=== PATIENT | female | born 1955 | race Caucasian/White ===

== ENCOUNTER 2017-06-24 16:03 | Observation (INO) | payer OTHER ==
--- NOTE | 2017-06-24 16:20 | ED ---
General Adult HPI - General Chief complaint: Chest Pain Stated complaint: Chest Pain Time Seen by Provider: 06/24/17 16:17 Source: patient, RN notes reviewed, old records reviewed Mode of arrival: wheelchair Limitations: no limitations - History of Present Illness Initial comments: This is a 62-year-old female to the ER for reevaluation. Patient coming in fevers or multiple complaints, right arm pain and tingling, dizziness, fast heart rate, shortness of breath and chest pain. Decreased appetite decreased ability to swallow secondary to possible esophageal mass which she knows about. No fevers no cough no congestion recent change in medical history no change in medications - Related Data Home Medications Medication Instructions Recorded Confirmed ALPRAZolam [Xanax] 0.5 mg PO Q8H PRN 06/24/17 06/24/17 Aspirin EC [Ecotrin Low Dose] 81 mg PO QAM 06/24/17 06/24/17 Cholecalciferol [Vitamin D3] 1,000 unit PO QAM 06/24/17 06/24/17 Cyclobenzaprine [Flexeril] 10 mg PO HS PRN 06/24/17 06/24/17 HYDROcodone/APAP 10-325MG [[place] 1 tab PO Q12H PRN 06/24/17 06/24/17 10-325] guaiFENesin [Mucinex] 600 mg PO BID PRN 06/24/17 06/24/17 metFORMIN HCL [Glucophage] 500 mg PO BID-W/MEALS 06/24/17 06/24/17 Allergies Allergy/AdvReac Type Severity Reaction Status Date / Time naproxen Allergy Anaphylaxis Verified 06/24/17 16:14 Review of Systems ROS Statement: Those systems with pertinent positive or pertinent negative responses have been documented in the HPI. ROS Other: All systems not noted in ROS Statement are negative. 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 Absent: scleral icterus, conjunctival injection, periorbital swelling ENT exam: Present: normal exam, mucous membranes moist Neck exam: Present: normal inspection. Absent: tenderness, meningismus, lymphadenopathy Respiratory exam: Present: normal lung sounds bilaterally. Absent: respiratory distress, wheezes, rales, rhonchi, stridor Cardiovascular Exam: Present: normal rhythm, tachycardia, normal heart sounds. Absent: systolic murmur, diastolic murmur, rubs, gallop, clicks GI/Abdominal exam: Present: soft, normal bowel sounds. Absent: distended, tenderness, guarding, rebound, rigid Extremities exam: Present: normal inspection, full ROM, normal capillary refill. Absent: tenderness, pedal edema, joint swelling, calf tenderness Back exam: Present: normal inspection Neurological exam: Present: alert, oriented X3, CN II-XII intact Psychiatric exam: Present: normal affect, normal mood Skin exam: Present: warm, dry, intact, normal color. Absent: rash Course Vital Signs 06/24/17 06/24/17 16:08 18:00 Temperature 98.6 F Pulse Rate 127 H 106 H Respiratory 20 20 Rate Blood Pressure 195/79 151/76 O2 Sat by Pulse 99 100 Oximetry EKG Findings - EKG Comments: EKG Findings:: EKG shows sinus tachycardia rate 126, [place] 140, QRS 74, QTC 457 Medical Decision Making - Medical Decision Making 62 the ER for evaluation. Patient is here today with chest pain inability. Patient be admitted for cardiac observation - Lab Data Result diagrams: 06/24/17 16:56 06/24/17 16:56 Lab Results 06/24/17 06/24/17 06/24/17 Range/Units 16:56 16:56 16:56 WBC 12.0 H (3.8-10.6) k/uL RBC 4.34 (3.80-5.40) m/uL Hgb 13.6 (11.4-16.0) gm/dL Hct 41.4 (34.0-46.0) % MCV 95.2 (80.0-100.0) fL MCH 31.2 (25.0-35.0) pg MCHC 32.8 (31.0-37.0) g/dL RDW 13.9 (11.5-15.5) % Plt Count 322 (150-450) k/uL Neutrophils % 67 % Lymphocytes % 25 % Monocytes % 4 % Eosinophils % 1 % Basophils % 1 % Neutrophils # 8.1 H (1.3-7.7) k/uL Lymphocytes # 3.0 (1.0-4.8) k/uL Monocytes # 0.5 (0-1.0) k/uL Eosinophils # 0.2 (0-0.7) k/uL Basophils # 0.1 (0-0.2) k/uL PT (9.0-12.0) sec INR (<1.2) APTT (22.0-30.0) sec D-Dimer (<0.60) mg/L FEU Sodium 139 (137-145) mmol/L Potassium 4.3 (3.5-5.1) mmol/L Chloride 106 (98-107) mmol/L Carbon Dioxide 20 L (22-30) mmol/L Anion Gap 13 mmol/L BUN 14 (7-17) mg/dL Creatinine 0.70 (0.52-1.04) mg/dL Est GFR (MDRD) Af Amer >60 (>60 ml/min/1.73 sqM) Est GFR (MDRD) Non-Af >60 (>60 ml/min/1.73 sqM) Glucose 313 H (74-99) mg/dL Calcium 9.9 (8.4-10.2) mg/dL Magnesium 1.9 (1.6-2.3) mg/dL Total Bilirubin 0.3 (0.2-1.3) mg/dL AST 17 (14-36) U/L ALT 24 (9-52) U/L Alkaline Phosphatase 107 (38-126) U/L Total Creatine Kinase 39 (30-135) U/L CK-MB (CK-2) 0.3 (0.0-2.4) ng/mL CK-MB (CK-2) Rel Index 0.8 Troponin I <0.012 (0.000-0.034) ng/mL NT-Pro-B Natriuret Pep pg/mL Total Protein 7.5 (6.3-8.2) g/dL Albumin 4.6 (3.5-5.0) g/dL Lipase 87 (23-300) U/L 06/24/17 06/24/17 Range/Units 16:56 16:56 WBC (3.8-10.6) k/uL RBC (3.80-5.40) m/uL Hgb (11.4-16.0) gm/dL Hct (34.0-46.0) % MCV (80.0-100.0) fL MCH (25.0-35.0) pg MCHC (31.0-37.0) g/dL RDW (11.5-15.5) % Plt Count (150-450) k/uL Neutrophils % % Lymphocytes % % Monocytes % % Eosinophils % % Basophils % % Neutrophils # (1.3-7.7) k/uL Lymphocytes # (1.0-4.8) k/uL Monocytes # (0-1.0) k/uL Eosinophils # (0-0.7) k/uL Basophils # (0-0.2) k/uL PT 9.7 (9.0-12.0) sec INR 0.9 (<1.2) APTT 23.9 (22.0-30.0) sec D-Dimer 0.53 (<0.60) mg/L FEU Sodium (137-145) mmol/L Potassium (3.5-5.1) mmol/L Chloride (98-107) mmol/L Carbon Dioxide (22-30) mmol/L Anion Gap mmol/L BUN (7-17) mg/dL Creatinine (0.52-1.04) mg/dL Est GFR (MDRD) Af Amer (>60 ml/min/1.73 sqM) Est GFR (MDRD) Non-Af (>60 ml/min/1.73 sqM) Glucose (74-99) mg/dL Calcium (8.4-10.2) mg/dL Magnesium (1.6-2.3) mg/dL Total Bilirubin (0.2-1.3) mg/dL AST (14-36) U/L ALT (9-52) U/L Alkaline Phosphatase (38-126) U/L Total Creatine Kinase (30-135) U/L CK-MB (CK-2) (0.0-2.4) ng/mL CK-MB (CK-2) Rel Index Troponin I (0.000-0.034) ng/mL NT-Pro-B Natriuret Pep 64 pg/mL Total Protein (6.3-8.2) g/dL Albumin (3.5-5.0) g/dL Lipase (23-300) U/L - Radiology Data Radiology results: report reviewed (Chest x-ray is negative for acute disease, CHF negative for acute disease), image reviewed Critical Care Time Critical Care Time: Yes Total Critical Care Time: 31 Disposition Clinical Impression: Chest pain Disposition: ADMITTED IP TO THIS HOSP Condition: Good Instructions: Chest Pain (ED) Referrals: Anais Oswald MD [Primary Care Provider] - 1-2 days
[2017-06-24] MEDS ORDERED: LORazepam 2 MG/ML SYRINGE IV STA (16:43)
[2017-06-24] MEDS: RX INFO: IV CONTRAST WAS GIVEN 1 EACH MISC MISCELLANE PRN ×2 (17:14→17:15)
[2017-06-24 17:20] LABS: Basophils # (A) 0.1 k/uL (0-0.2); Basophils % (A) 1 %; CH 31.7; CHCM 33.4; Eosinophils # (A) 0.2 k/uL (0-0.7); Eosinophils % (A) 1 %; HCT 41.4 % (34.0-46.0); HDW 2.13; HGB 13.6 gm/dL (11.4-16.0); Luc # (Auto) 0.17; Luc % (Auto) 1; Lymphocytes % (A) 25 %; MCH 31.2 pg (25.0-35.0); MCHC 32.8 g/dL (31.0-37.0); MCV 95.2 fL (80.0-100.0); Mean Platelet Volume 8.4; Monocytes # (A) 0.5 k/uL (0-1.0); Monocytes % (A) 4 %; Neutrophils # (A) 8.1 k/uL (1.3-7.7); Neutrophils % (A) 67 %; RBC 4.34 m/uL (3.80-5.40); RDW 13.9 % (11.5-15.5); WBC (Perox) 11.58
--- NOTE | 2017-06-24 17:26 | XR ---
EXAMINATION TYPE: XR chest 2V DATE OF EXAM: 06/24/2017 COMPARISON: 10/14/2014 HISTORY: Chest pain TECHNIQUE: Frontal and lateral views of the chest are obtained. FINDINGS: Heart and mediastinum are normal. Lungs are clear. Diaphragm is normal. Bony thorax appear s intact. There are chest leads. IMPRESSION: Normal chest. No change.
[2017-06-24 17:28] LABS: INR 0.9 (<1.2); Partial Thromboplastin Time 23.9 sec (22.0-30.0); Prothrombin Time 9.7 sec (9.0-12.0)
[2017-06-24 17:31] LABS: ALT 24 U/L (9-52); AST 17 U/L (14-36); Alkaline Phosphatase 107 U/L (38-126); Anion Gap 13 mmol/L; Blood Urea Nitrogen 14 mg/dL (7-17); Calcium 9.9 mg/dL (8.4-10.2); Carbon Dioxide 20 mmol/L (22-30); Chloride 106 mmol/L (98-107); Glucose 313 mg/dL (74-99); Magnesium 1.9 mg/dL (1.6-2.3); Non-African American GFR(MDRD) >60 (>60 ml/min/1.73 sqM); Potassium 4.3 mmol/L (3.5-5.1); Sodium 139 mmol/L (137-145); Total Bilirubin 0.3 mg/dL (0.2-1.3); Total Protein 7.5 g/dL (6.3-8.2)
[2017-06-24 17:37] LABS: Creatine Kinase 39 U/L (30-135)
[2017-06-24 17:50] LABS: Creatine Kinase MB 0.3 ng/mL (0.0-2.4); Troponin I <0.012 ng/mL (0.000-0.034)
--- NOTE | 2017-06-24 18:24 | CT ---
EXAMINATION TYPE: CT angio chest DATE OF EXAM: 06/24/2017 6:14 PM COMPARISON: NONE HISTORY: SOB, right side numbness, chest pain/pressure CT DLP: 143.1 mGycm Automated exposure control for dose reduction was used. CONTRAST: CTA scan of the thorax is performed with IV Contrast, patient injected with 66cc mL of Omnipaque 350, pulmonary embolism protocol. There are 3-D post processed images.. FINDINGS: Heart size is normal. There is no pericardial effusion. There is no pleural effusion. There are no hi lar masses. There is no mediastinal adenopathy. There is normal contrast opacification of the pulmona ry arteries. I see no filling defects. There is no sign of aortic aneurysm or dissection. Lungs are clear of infiltrate. There is no sign of a pulmonary mass. There is mild atheromatous cordon e in the thoracic aorta. Bony thorax is intact. IMPRESSION: NEGATIVE CT ANGIOGRAM OF THE CHEST. NO EVIDENCE OF PULMONARY EMBOLISM.
[2017-06-24] MEDS ORDERED: ASPIRIN 81 MG CHEW PO STA (19:09)
[2017-06-24] MEDS ORDERED: NITROGLYCERIN SL TABS 0.4 MG TAB SUBLINGUAL PRN (19:09)
[2017-06-24] MEDS: SODIUM CHLORIDE 0.9% 1,000 ML IV SCH (19:21)
[2017-06-24 20:29] VITALS: BMI 23.4
[2017-06-24 21:11] LABS: Glucose,Whole Blood 188 mg/dL (75-99)
[2017-06-24 23:03] LABS: Creatine Kinase 39 U/L (30-135)
[2017-06-24] MEDS ORDERED: guaiFENesin 600 MG TABLET.ER PO PRN (23:09)
[2017-06-24] MEDS ORDERED: metFORMIN 500 MG TAB PO SCH (23:15)
[2017-06-24 23:16] LABS: Creatine Kinase MB 0.4 ng/mL (0.0-2.4); Troponin I <0.012 ng/mL (0.000-0.034)
[2017-06-24] MEDS: HYDROcodone/APAP 10-325MG 1 EACH TAB PO PRN (23:41)
[2017-06-24] MEDS: ALPRAZolam 0.5 MG TAB PO PRN (23:44)
[2017-06-25] MEDS: CYCLOBENZAPRINE 10 MG TAB PO PRN ×2 (00:33→23:17)
[2017-06-25] MEDS: NICOTINE 14MG/24HR PATCH TRANSDERM SCH ×2 (00:33→10:58)
[2017-06-25 05:57] LABS: Cholesterol 277 mg/dL (<200); HDL Cholesterol 52 mg/dL (40-60)
[2017-06-25 06:08] LABS: Creatine Kinase 38 U/L (30-135)
[2017-06-25 06:20] LABS: Creatine Kinase MB 0.4 ng/mL (0.0-2.4); Troponin I <0.012 ng/mL (0.000-0.034)
[2017-06-25] MEDS: SODIUM CHLORIDE 0.9% 1,000 ML IV SCH ×3 (06:24→19:57)
[2017-06-25 06:48] LABS: Glucose,Whole Blood 166 mg/dL (75-99)
[2017-06-25] MEDS ORDERED: NON-FORMULARY DRUG (Aspirin Ec 81 MG) PO SCH (09:00)
[2017-06-25] MEDS ORDERED: ENOXAPARIN 40 MG/0.4 ML SYRINGE SQ SCH (09:00)
[2017-06-25] MEDS ORDERED: CHOLECALCIFEROL 1,000 UNIT TAB PO SCH (09:00)
[2017-06-25 09:17] LABS: Hemoglobin A1C 8.9 % (4.2-6.1)
--- NOTE | 2017-06-25 10:42 | P.CONS ---
History of Present Illness - Reason for Consult Consult date: 06/25/17 Dysphagia Requesting physician: Anais Oswald - History of Present Illness 62-year-old female long-standing nicotine cigarette dependency admitted with chest pain, right arm pain tingling dizziness shortness of breath and dysphagia. Consultation requested for dysphagia. Patient has had chronic dysphagia for several years mostly with breads and meats but exacerbated over the last few months. According to the patient about 10 years ago she underwent removal of a benign polyp "on my windpipe" by [facility] Dr. Brooke Domínguez. She was told at that time she had an additional polyp near her esophagus that would be observed. About 2 years ago she was evaluated by at [facility] for dyspnea, dysphagia, airway edema requiring intubation and underwent bedside endoscopic evaluation of her upper airway and was told she had a "cancer polyp" . She has not followed in regards to this "cancerous polyp". Persistent hoarseness over the last several years. No changes in appetite but has lost about 10 pounds of weight over the last few months. Denies hematemesis hematochezia melena. No history of EGD or colonoscopy. White count 12. Hemoglobin 13.6. D-dimer 0.5. Denies odynophagia but is able to tolerate thin/thick liquids but has increased dysphagia with breads and meats. CT chest negative. Review of Systems Constitutional: Denies fever, chills, sweats, weight gain, or loss. HEENT: Negative for migraines, blurred vision or loss, earaches, drainage, tinnitus, oral mucosal lesions, dysphagia, or odynophagia. CARDIAC: Negative for chest pain, arrhythmias, or palpitation. RESPIRATORY: Nicotine cigarette dependency Negative for shortness of breath, hemoptysis, cough, or sputum production. GI: See HPI for pertinent findings. : Negative for hematuria, urgency, frequency, polyuria, or dysuria. GYNc: Denies possibility of . Negative vaginal discharge. MUSCULOSKELETAL: Negative for muscle aches, swelling, arthritis, and arthralgias. NEUROLOGIC: Negative for stroke or TIA. ENDOCRINE: Negative for thyroid problems. SKIN: Negative for rash or itching. 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", Left knee-may procedure Past Anesthesia/Blood Transfusion Reactions: No Reported Reaction, Motion Sickness Past Psychological History: Anxiety, Depression Smoking Status: Current every day smoker Past Alcohol Use History: None Reported Past Drug Use History: None Reported - Past Family History Father Family Medical History: No Reported History Mother Family Medical History: No Reported History Medications and Allergies Home Medications Medication Instructions Recorded Confirmed Type ALPRAZolam [Xanax] 1 mg PO Q6HR PRN 06/24/17 06/24/17 History Aspirin EC [Ecotrin Low Dose] 81 mg PO QAM 06/24/17 06/24/17 History Cholecalciferol [Vitamin D3] 1,000 unit PO QAM 06/24/17 06/24/17 History Cyclobenzaprine [Flexeril] 10 mg PO HS PRN 06/24/17 06/24/17 History HYDROcodone/APAP 10-325MG [[place] 1 tab PO Q12H PRN 06/24/17 06/24/17 History 10-325] guaiFENesin [Mucinex] 600 mg PO BID PRN 06/24/17 06/24/17 History metFORMIN HCL [Glucophage] 500 mg PO BID-W/MEALS 06/24/17 06/24/17 History Allergies Allergy/AdvReac Type Severity Reaction Status Date / Time naproxen Allergy Anaphylaxis Verified 06/24/17 20:04 Physical Exam Vitals: Vital Signs Temp Pulse Pulse Resp BP BP Pulse Ox 06/25/17 08:00 97.9 F 84 16 144/69 100 06/25/17 04:00 97.9 F 80 16 140/65 100 06/25/17 00:00 98.0 F 82 18 159/80 96 06/24/17 20:21 97.8 F 101 H 16 182/82 98 06/24/17 19:40 98.3 F 06/24/17 19:00 109 H 20 151/76 100 06/24/17 18:00 106 H 20 151/76 100 06/24/17 16:08 98.6 F 127 H 20 195/79 99 Intake and Output 06/24/17 06/25/17 06/25/17 22:59 06:59 14:59 Intake Total 600 1000 Balance 600 1000 Intake: Intake, IV Titration 200 1000 Amount Sodium Chloride 0.9% 1, 200 1000 000 ml @ 100 mls/hr IV . Q10H ELLIOTT Rx#:[id number] Oral 400 Other: Voiding Method Toilet # Voids 1 1 Weight 54.7 kg General appearance: The patient is alert, oriented, in no acute distress. Voice hoarseness. HET: Head is normocephalic and atraumatic. Pupils are equal and reactive. Oropharynx is clear without lesions. Neck: Supple. Palpable fullness to the left side of neck. Trachea midline. Heart: S1 S2. Regular rate and rhythm. Lungs: No crackles or wheezes are heard. Abdomen: Soft, nontender, nondistended with bowel sounds. No peritoneal signs. No palpable organomegaly or masses. Extremities: Normal skin color and turgor. No cyanosis, rash, ulceration, clubbing, or edema. Radial and pedal pulses are 2/4 bilaterally. Neurological: No focal deficits. Strength and sensation are grossly intact. Results CBC & Chem 7: 06/24/17 16:56 06/24/17 16:56 Labs: Abnormal Lab Results - Last 24 Hours (Table) 06/24/17 06/24/17 06/24/17 Range/Units 16:56 16:56 16:56 WBC 12.0 H (3.8-10.6) k/uL Neutrophils # 8.1 H (1.3-7.7) k/uL Carbon Dioxide 20 L (22-30) mmol/L Glucose 313 H (74-99) mg/dL POC Glucose (mg/dL) (75-99) mg/dL Hemoglobin A1c 8.9 H (4.2-6.1) % Triglycerides (<150) mg/dL Cholesterol (<200) mg/dL LDL Cholesterol, Calc (0-99) mg/dL 06/24/17 06/25/17 06/25/17 Range/Units 20:57 05:26 06:46 WBC (3.8-10.6) k/uL Neutrophils # (1.3-7.7) k/uL Carbon Dioxide (22-30) mmol/L Glucose (74-99) mg/dL POC Glucose (mg/dL) 188 H 166 H (75-99) mg/dL Hemoglobin A1c (4.2-6.1) % Triglycerides 151 H (<150) mg/dL Cholesterol 277 H (<200) mg/dL LDL Cholesterol, Calc 195 H (0-99) mg/dL CT scan - chest: report reviewed (Dr. Duque) Assessment and Plan (1) Dysphagia Narrative/Plan: 62-year-old female with a history of benign polyp removed about 10 years ago in the upper airway with persistent hoarseness and intermittent dysphagia over the last several years worsening over the last few months with 10 pound weight loss presents with worsening dysphagia with solids and chest pain. Status: Acute Plan: 1. EGD evaluation tomorrow. 2. Soft liquid diet avoid breads and meats. 3. Hold Lovenox. 4. Recommend ENT consultation. The electrical engineering drafting officer has discussed the risks, benefits and alternative therapies for the above-mentioned procedure and for both sedation/analgesia as well as necessary blood product administration, if indicated, as they pertain to this patient. The patient has indicated understanding and acceptance of the risks and procedures discussed. Thank you for this kind referral and the opportunity to participate in the care of your patient. This consultation was discussed with Dr. Duque. The impression and plan of care have been directed as dictated.
[2017-06-25] MEDS: ASPIRIN 325 MG TAB PO SCH (10:58)
[2017-06-25] MEDS: metFORMIN 500 MG TAB PO SCH ×2 (10:58→19:55)
[2017-06-25] MEDS ORDERED: ATORVASTATIN 20 MG TAB PO SCH (11:00)
[2017-06-25] MEDS: ALPRAZolam 0.5 MG TAB PO PRN ×2 (11:54→22:23)
[2017-06-25 12:06] LABS: Glucose,Whole Blood 175 mg/dL (75-99)
[2017-06-25] MEDS: METOPROLOL TARTRATE 12.5 MG TAB PO SCH ×2 (12:21→22:23)
--- NOTE | 2017-06-25 13:03 | ECHOF ---
Referral Reason:chest pain MEASUREMENTS -------- HEIGHT: 152.4 cm WEIGHT: 54.4 kg BP: 144/69 RVIDd: 3.0 cm (< 3.3) IVSd: 1.2 cm (0.6 - 1.1) LVIDd: 3.6 cm (3.9 - 5.3) LVPWd: 1.0 cm (0.6 - 1.1) IVSs: 1.2 cm LVIDs: 2.3 cm LVPWs: 1.5 cm LA Diam: 2.7 cm (2.7 - 3.8) LAESV Index (A-L): 18.69 ml/m Ao Diam: 3.2 cm (2.0 - 3.7) AV Cusp: 1.8 cm (1.5 - 2.6) MV EXCURSION: 12.972 mm (> 18.000) MV EF SLOPE: 82 mm/s (70 - 150) EPSS: 0.6 cm MV E Arie: 0.91 m/s MV DecT: 183 ms MV A Arie: 1.07 m/s MV E/A Ratio: 0.85 FINDINGS -------- Sinus rhythm. This was a technically adequate study. The left ventricular size is normal. There is borderline concentric left ventricular hypertrophy. Overall left ventricular systolic function is normal with, an EF between 55 - 60 %. The right ventricle is normal in size and function. Normal LA size by volume 22+/-6 ml/m2. The right atrium is normal in size. There is mild aortic valve sclerosis. The mitral valve leaflets are mildly thickened. Mild mitral annular calcification present. The tricuspid valve appears structurally normal. No regurgitation noted The pulmonic valve was not well visualized. The aortic root size is normal. Normal inferior vena cava with normal inspiratory collapse consistent with estimated right atrial pressure of 5 mmHg. There is no pericardial effusion. CONCLUSIONS -------- 1. Sinus rhythm. 2. Mild mitral annular calcification present. 3. The tricuspid valve appears structurally normal. 4. No regurgitation noted 5. The pulmonic valve was not well visualized. 6. The aortic root size is normal. 7. Normal inferior vena cava with normal inspiratory collapse consistent with estimated right atrial pressure of 5 mmHg. 8. There is no pericardial effusion. 9. This was a technically adequate study. 10. The left ventricular size is normal. 11. There is borderline concentric left ventricular hypertrophy. 12. Overall left ventricular systolic function is normal with, an EF between 55 - 60 %. 13. The right ventricle is normal in size and function. 14. Normal LA size by volume 22+/-6 ml/m2. 15. There is mild aortic valve sclerosis. 16. The mitral valve leaflets are mildly thickened. [employer]: Samra Delgado RDCS
[2017-06-25] MEDS: HYDROcodone/APAP 10-325MG 1 EACH TAB PO PRN ×2 (15:11→22:24)
--- NOTE | 2017-06-25 15:18 | CONS ---
Melinda Burk is a 62-year-old lady who possibly carries a diagnosis of chronic dysphagia. There is a question of some benign polyps that were removed at [facility]. She also has some question of esophageal polyp, details are very unclear. She came in mostly with dysphagia, pain in the right side of her neck and chest. D-dimer was equivocal. I was asked to see her to rule out if this was atypical angina. She has a diabetes and she smokes on a regular basis 1 pack a day. Quality of her symptoms do not seem anginal. Troponin levels are normal and she does have some tenderness in the right side of her chest a well. While CAD cannot be excluded in this patient, I do not believe we are dealing with acute myocardial ischemia and I will recommend that further workup be performed for dysphagia and no intervention necessary from a cardiac standpoint. She has multiple comorbid conditions including diabetes, codeine dependency, history of pneumonia, sleep apnea uses CPAP. PAST MEDICAL HISTORY: Polyp in esophagus and cannot rule out this is malignancy or not. She had some tracheal tumors also. Details are very unclear and sketchy. She had most of her workup done at [facility]. She had appendectomy, hysterectomy, orthopedic surgery. Medications at home include aspirin, vitamin supplements, pain medications, metformin. Allergy to NAPROSYN. Physical exam revealed blood pressure of 140/70, pulse rate is 80 per minute. HEENT: Unremarkable. Fundus was not examined by me. Neck is supple, no JVD. I do not hear a carotid bruit. Heart exam reveals S1, S2 heard normally without a significant murmur or gallop. Lungs reveal diminished air entry. Abdomen is soft, nontender. Lower extremities reveal diminished pulses. Central nervous system is grossly within normal limits. EKG revealed a sinus mechanism with sinus tachycardia. No acute changes. Laboratory data suggested that her D-dimer was normal, troponins are unremarkable, cholesterol is elevated. IMPRESSION: 1. Atypical chest pain. 2. Question of esophageal polyp/dysphagia, rule out any malignancy. 3. Nicotine dependence. 4. Type 2 diabetes mellitus. RECOMMENDATIONS: I would recommend that we initiate her on Lopressor, 12.5 mg b.i.d., Lipitor 20 mg daily. Further cardiac workup can be done as an outpatient. I would recommend evaluation from GI with regards for dysphagia. Will see her as needed. Thank you very much for the consult. KIANA
[2017-06-25 16:11] VITALS: RESP 18
[2017-06-25 16:57] LABS: Glucose,Whole Blood 177 mg/dL (75-99)
--- NOTE | 2017-06-25 17:44 | P.HPIM ---
History of Present Illness H&P Date: 06/25/17 Chief Complaint: Chest pain and difficulty swallowing food Patient is a 62-year-old female who presented to [facility] was multiple complaints including chest pain numbness down her arms and difficulty swallowing food. She was evaluated in the emergency room and was admitted for further evaluation and treatment serial EKG and cardiac enzymes were ordered cardiology consultation was requested and gastroenterology consultation was requested for possible EGD due to difficulty swallowing. 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", Left knee-may procedure Past Anesthesia/Blood Transfusion Reactions: No Reported Reaction, Motion Sickness Past Psychological History: Anxiety, Depression Smoking Status: Current every day smoker Past Alcohol Use History: None Reported Past Drug Use History: None Reported - Past Family History Father Family Medical History: No Reported History Mother Family Medical History: No Reported History Medications and Allergies Home Medications Medication Instructions Recorded Confirmed Type ALPRAZolam [Xanax] 1 mg PO Q6HR PRN 06/24/17 06/24/17 History Aspirin EC [Ecotrin Low Dose] 81 mg PO QAM 06/24/17 06/24/17 History Cholecalciferol [Vitamin D3] 1,000 unit PO QAM 06/24/17 06/24/17 History Cyclobenzaprine [Flexeril] 10 mg PO HS PRN 06/24/17 06/24/17 History HYDROcodone/APAP 10-325MG [[place] 1 tab PO Q12H PRN 06/24/17 06/24/17 History 10-325] guaiFENesin [Mucinex] 600 mg PO BID PRN 06/24/17 06/24/17 History metFORMIN HCL [Glucophage] 500 mg PO BID-W/MEALS 06/24/17 06/24/17 History Allergies Allergy/AdvReac Type Severity Reaction Status Date / Time naproxen Allergy Anaphylaxis Verified 06/24/17 20:04 Physical Exam Vitals: Vital Signs Temp Pulse Pulse Resp BP BP Pulse Ox 06/25/17 16:00 97.8 F 73 18 164/92 98 06/25/17 12:00 97.9 F 87 14 145/81 99 06/25/17 08:00 97.9 F 84 16 144/69 100 06/25/17 04:00 97.9 F 80 16 140/65 100 06/25/17 00:00 98.0 F 82 18 159/80 96 06/24/17 20:21 97.8 F 101 H 16 182/82 98 06/24/17 19:40 98.3 F 06/24/17 19:00 109 H 20 151/76 100 06/24/17 18:00 106 H 20 151/76 100 Intake and Output 06/25/17 06/25/17 06/25/17 06:59 14:59 22:59 Intake Total 1000 240 Balance 1000 240 Intake: Intake, IV Titration 1000 Amount Sodium Chloride 0.9% 1, 1000 000 ml @ 100 mls/hr IV . Q10H ELLIOTT Rx#:[id number] Oral 240 Other: Voiding Method Toilet Toilet Toilet # Voids 1 HEENT head normocephalic and atraumatic Neck is supple no JVD no goiter no lymphadenopathy Chest exam reveals a few scattered crackles no wheezing Cardiac exam reveals regular heart sounds no gallops no murmurs Abdomen is soft nontender no organomegaly Extremity exam reveals no edema no cyanosis or clubbing Results CBC & Chem 7: 06/24/17 16:56 06/24/17 16:56 Labs: Abnormal Lab Results - Last 24 Hours (Table) 06/24/17 06/24/17 06/25/17 Range/Units 16:56 20:57 05:26 POC Glucose (mg/dL) 188 H (75-99) mg/dL Hemoglobin A1c 8.9 H (4.2-6.1) % Triglycerides 151 H (<150) mg/dL Cholesterol 277 H (<200) mg/dL LDL Cholesterol, Calc 195 H (0-99) mg/dL 06/25/17 06/25/17 06/25/17 Range/Units 06:46 11:49 16:53 POC Glucose (mg/dL) 166 H 175 H 177 H (75-99) mg/dL Hemoglobin A1c (4.2-6.1) % Triglycerides (<150) mg/dL Cholesterol (<200) mg/dL LDL Cholesterol, Calc (0-99) mg/dL Thrombosis Risk Factor Assmnt - Choose All That Apply Other Risk Factors: Yes Each Risk Factor Represents 2 Points: Age 61-74 years Thrombosis Risk Factor Assessment Total Risk Factor Score: 2 Thrombosis Risk Factor Assessment Level: Low Risk Assessment and Plan Plan: #1 episodes of chest pain #2 difficulty swallowing food #3 underlying history of diabetes mellitus with poor control due to poor compliance with medications #4 prolonged history of tobacco abuse At this time patient is admitted for 24-hour observation and serial EKG and cardiac enzymes were ordered echocardiogram was ordered cardiology consultation is requested. Also in that regard to difficulty swallowing food patient will be seen by gastroenterology, possible EGD in a.m. tomorrow. She was counseled in length in regards to smoking cessation counseling more than 10 minutes she was started on NicoDerm patches 21 g every 24 hours. She was counseled in regard to diabetes controlled and adherence to medication regimen
[2017-06-25 20:17] LABS: Glucose,Whole Blood 186 mg/dL (75-99)
[2017-06-26 07:03] LABS: Glucose,Whole Blood 144 mg/dL (75-99)
[2017-06-26] MEDS: ALPRAZolam 0.5 MG TAB PO PRN (08:04)
[2017-06-26 09:42] LABS: Basophils # (A) 0.1 k/uL (0-0.2); Basophils % (A) 1 %; CH 31.7; CHCM 33.1; Eosinophils # (A) 0.2 k/uL (0-0.7); Eosinophils % (A) 3 %; HCT 40.3 % (34.0-46.0); HDW 2.18; HGB 13.3 gm/dL (11.4-16.0); Luc # (Auto) 0.15; Luc % (Auto) 2; Lymphocytes # (A) 2.9 k/uL (1.0-4.8); Lymphocytes % (A) 33 %; MCH 31.7 pg (25.0-35.0); MCHC 32.9 g/dL (31.0-37.0); MCV 96.3 fL (80.0-100.0); Mean Platelet Volume 8.2; Monocytes # (A) 0.4 k/uL (0-1.0); Monocytes % (A) 5 %; Neutrophils # (A) 5.1 k/uL (1.3-7.7); Neutrophils % (A) 57 %; RBC 4.19 m/uL (3.80-5.40); RDW 13.7 % (11.5-15.5)
[2017-06-26 09:59] LABS: Anion Gap 9 mmol/L; Blood Urea Nitrogen 10 mg/dL (7-17); Calcium 9.3 mg/dL (8.4-10.2); Carbon Dioxide 24 mmol/L (22-30); Chloride 109 mmol/L (98-107); Glucose 192 mg/dL (74-99); Non-African American GFR(MDRD) >60 (>60 ml/min/1.73 sqM); Potassium 3.9 mmol/L (3.5-5.1); Sodium 142 mmol/L (137-145)
[2017-06-26] MEDS ORDERED: LIDOCAINE 1% INJ 10MG/ML (20 ML MDV) ONE (11:51)
[2017-06-26] MEDS ORDERED: PROPOFOL 10 MG/ML 20 ML VIAL IV ONE (11:51)
[2017-06-26] MEDS ORDERED: IV FLUID CONTINUATION 1,000 ML IV ONE (11:58)
--- NOTE | 2017-06-26 12:06 | P.PCN ---
Date of Procedure: 06/26/17 Preoperative Diagnosis: Postoperative Diagnosis: Procedure(s) Performed: BRIEF HISTORY: Patient is a 62-year-old, pleasant, white female, scheduled for an upper endoscopy as a part of evaluation of dysphagia to solids for the last 10 years duration. However symptoms have been progressively getting worse in the last several months and hence he scheduled for an upper endoscopy with possible dilation today. PROCEDURE PERFORMED: Esophagogastroduodenoscopy with biopsy. PREOPERATIVE DIAGNOSIS: Progressive dysphagia to solids for the last several years duration. IV sedation per anesthesia. PROCEDURE: After informed consent was obtained, the patient was brought into the endoscopy unit. IV sedation was administered by Anesthesia under continuous monitoring. Initially the Olympus GIF-140 video endoscope was inserted into the mouth. Esophagus intubated without any difficulty. It was gradually advanced into the stomach and duodenum and carefully examined. The bulb had mild duodenitis and the second part of the duodenum appeared normal. The scope at this time was withdrawn to the stomach, adequately insufflated with air, and upon careful examination, mucosa of the antrum, had mild gastritis and biopsies were done from this area. The body, cardia and the fundus appeared normal. The scope was then withdrawn into the esophagus. The GE junction was located at 39 cm from the incisors. The esophagus appeared normal. There were no erosions or ulcerations seen, no evidence of esophageal stricture, multiple biopsies were done from the distal esophagus and the patient tolerated the procedure well. IMPRESSION: 1. Normal-appearing esophagus with no evidence of esophagitis, esophageal stricture or esophageal polyp. 2. Mild antral gastritis and duodenitis. RECOMMENDATIONS: The findings of this examination were discussed with the patient as well as her family. She was advised to follow with the biopsy results. In the meantime she'll be started on a regular diet. Implants: Indications for Procedure: Operative Findings: Description of Procedure:
[2017-06-26] MEDS: metFORMIN 500 MG TAB PO SCH (12:31)
[2017-06-26] MEDS: ASPIRIN 325 MG TAB PO SCH (12:31)
[2017-06-26 12:32] VITALS: TEMP 97.7
[2017-06-26] MEDS: NICOTINE 14MG/24HR PATCH TRANSDERM SCH (12:34)
--- NOTE | 2017-06-26 12:53 | P.PN ---
Subjective Patient is a 62-year-old female who presented to [facility] was multiple complaints including chest pain numbness down her arms and difficulty swallowing food. 06/26/2017 patient underwent EGD showing mild antral gastritis and duodenitis. No evidence of any esophageal stricture. Patient reports having a polyp in her windpipe that was removed. Also told that she had a spot on her esophagus. Patient is a smoker she's had about a 10 pound weight loss and his been dealing with difficulty with swallowing. Also having some hoarseness she also be evaluated by ENT service. Cardiology added Lopressor and Lipitor during this admission and will have 40 further cardiac workup completed outpatient. Patient denies any further chest pain. Denies any nausea or vomiting. Denies any bowel movement changes or urinary symptoms. Objective - Vital Signs Vital signs: Vital Signs Temp 97.7 F 06/26/17 12:25 Pulse 103 H 06/26/17 12:25 Resp 18 06/26/17 12:25 BP 122/65 06/26/17 12:25 Pulse Ox 99 06/26/17 12:25 Intake & Output 06/25/17 06/26/17 06/26/17 18:59 06:59 18:59 Intake Total 240 100 Balance 240 100 Intake: IV 100 Oral 240 Other: Voiding Method Toilet Toilet Toilet - Exam Head normocephalic Neck supple Lungs clear to auscultation bilaterally no wheezing or crackles Heart regular rate and rhythm S1-S2, no rub or gallop Abdomen is soft nontender nondistended positive bowel sounds no hepatosplenomegaly Extremities no edema Neuro alert and orientated to 3 - Labs CBC & Chem 7: 06/26/17 09:20 06/26/17 09:20 Labs: Abnormal Lab Results - Last 24 Hours (Table) 06/25/17 06/25/17 06/26/17 Range/Units 16:53 20:08 07:00 Chloride (98-107) mmol/L Glucose (74-99) mg/dL POC Glucose (mg/dL) 177 H 186 H 144 H (75-99) mg/dL 06/26/17 Range/Units 09:20 Chloride 109 H (98-107) mmol/L Glucose 192 H (74-99) mg/dL POC Glucose (mg/dL) (75-99) mg/dL Assessment and Plan Plan: 1. Atypical chest pain: Troponins negative 3 sets. EKG showing no acute changes. CT of the chest negative for PE. Echo showing EF of 55-60%. No significant valve abnormality. Cardiology is cleared her for discharge we'll follow-up with her outpatient for further testing. 2. Dysphagia. Patient had EGD completed no evidence of stricture. Did reveal mild gastritis and duodenitis. Continue Protonix. Also have patient seen by ENT service 3. Hoarseness with previous polyp windpipe with 10 pound weight loss. While patient evaluated by ENT service. 4. Uncontrolled diabetes mellitus with A1c of 8.9. Poor compliance with medications. Blood sugars are showing improvement. Continue metformin 5. Nicotine dependence discussed smoking cessation continue nicotine patch 6. Hyperlipidemia cholesterol 277 and LDL 195, cardiology did add Lipitor 20 mg daily 7. Essential hypertension with some sinus tachycardia on admission. Cardiology added Lopressor 12.5 mg twice a day. Patient's vital signs are improving. Continue to monitor DVT prophylaxis on hold for possible procedure I performed an examination of the patient and discussed their management with the physician Door Paneler. I have reviewed the Physician Door Paneler's notes and agree with the documented findings and plan of care
[2017-06-26] MEDS ORDERED: PANTOPRAZOLE 40 MG TABLET PO SCH (13:00)
[2017-06-26 13:18] VITALS: PULSE 102
[2017-06-26 13:21] VITALS: BP 143/78
--- NOTE | 2017-06-26 14:38 | P.DS ---
Providers Date of admission: 06/24/17 19:12 Expected date of discharge: 06/26/17 Attending physician: Anais Oswald Consults: 06/24/17 19:09 Consult Physician Urgent Consulting Provider: Helene Joyner Consult Reason/Comments: cp Do you want consulting provider notified?: Yes 06/25/17 07:52 Consult Physician Routine Consulting Provider: Rosario Duque Consult Reason/Comments: possible EGD, difficulty swallowing food Do you want consulting provider notified?: Yes 06/26/17 12:39 Consult Physician Routine Consulting Provider: Ricco Andersen Consult Reason/Comments: hoarseness Do you want consulting provider notified?: Yes Primary care physician: Anais Oswald [facility] Course: Discharge diagnosis 1. Atypical chest pain: Troponins negative 3 sets. EKG showing no acute changes. CT of the chest negative for PE. Echo showing EF of 55-60%. No significant valve abnormality. Cardiology is cleared her for discharge we'll follow-up with her outpatient for further testing. 2. Dysphagia. Patient had EGD completed no evidence of stricture. Did reveal mild gastritis and duodenitis. Continue Protonix. Also have patient seen by ENT service 3. Hoarseness with previous polyp windpipe with 10 pound weight loss. Patient unable to be evaluated by ENT during hospitalization. We'll have her follow-up with ENT outpatient 4. Uncontrolled diabetes mellitus with A1c of 8.9. Poor compliance with medications. Blood sugars are showing improvement. Continue metformin 5. Nicotine dependence discussed smoking cessation continue nicotine patch 6. Hyperlipidemia cholesterol 277 and LDL 195, cardiology did add Lipitor 20 mg daily 7. Essential hypertension with some sinus tachycardia on admission. Cardiology added Lopressor 12.5 mg twice a day. Patient's vital signs are improving. Continue to monitor Hospital course Patient is a 62-year-old female who presented to [facility] was multiple complaints including chest pain numbness down her arms and difficulty swallowing food. Patient seen by cardiology. [place] that her chest pain was atypical AR was ruled out. We'll follow-up with her outpatient. They suggested GI workup. Patient underwent EGD regarding the dysphagia there is no evidence of any esophageal stricture. She did have evidence of mild gastritis and duodenitis and she'll be discharged with omeprazole 20 mg by mouth daily. Patient is also had hoarseness in a previous polyp in her windpipe with weight loss. Patient will follow-up with the ENT specialist she had seen in the past outpatient for further workup. She was unable to be seen by ENT during this hospitalization. Cardiology did add metoprolol and Lipitor during this admission. Patient's symptoms are tolerable and she'll follow-up with specialists outpatient. Patient is medically stable for discharge. Please refer to chart for any further details. Patient will follow-up with Dr. Oswald in 1 week. Follow-up with ENT specialist in 1 week. And follow-up with cardiology in 1 week I performed an examination of the patient and discussed their management with the physician Electronics Warfare Technician. I have reviewed the Physician Electronics Warfare Technician's notes and agree with the documented findings and plan of care Patient Condition at Discharge: Stable Plan - Discharge Summary New Discharge Prescriptions: New Atorvastatin [Lipitor] 20 mg PO DAILY #30 tab Metoprolol Tartrate [Lopressor] 12.5 mg PO BID #60 tab glipiZIDE [Glucotrol] 2.5 mg PO AC-BID #60 tab Nicotine 14Mg/24Hr Patch [Habitrol] 1 patch TRANSDERM DAILY #30 patch Omeprazole 20 mg PO DAILY #[address] tablet.[address] Strange metFORMIN HCL [Glucophage] 500 mg PO BID-W/MEALS guaiFENesin [Mucinex] 600 mg PO BID PRN PRN Reason: Congestion/Dyspnea Cyclobenzaprine [Flexeril] 10 mg PO HS PRN PRN Reason: Muscle Spasm/Pain HYDROcodone/APAP 10-325MG [[place] 10-325] 1 tab PO Q12H PRN PRN Reason: Pain Cholecalciferol [Vitamin D3] 1,000 unit PO QAM ALPRAZolam [Xanax] 1 mg PO Q6HR PRN PRN Reason: Anxiety Aspirin EC [Ecotrin Low Dose] 81 mg PO QAM Discharge Medication List ALPRAZolam [Xanax] 1 mg PO Q6HR PRN 06/24/17 [History] Aspirin EC [Ecotrin Low Dose] 81 mg PO QAM 06/24/17 [History] Cholecalciferol [Vitamin D3] 1,000 unit PO QAM 06/24/17 [History] Cyclobenzaprine [Flexeril] 10 mg PO HS PRN 06/24/17 [History] HYDROcodone/APAP 10-325MG [[place] 10-325] 1 tab PO Q12H PRN 06/24/17 [History] guaiFENesin [Mucinex] 600 mg PO BID PRN 06/24/17 [History] metFORMIN HCL [Glucophage] 500 mg PO BID-W/MEALS 06/24/17 [History] Atorvastatin [Lipitor] 20 mg PO DAILY #30 tab 06/25/17 [Rx] Metoprolol Tartrate [Lopressor] 12.5 mg PO BID #60 tab 06/25/17 [Rx] Nicotine 14Mg/24Hr Patch [Habitrol] 1 patch TRANSDERM DAILY #30 patch 06/26/17 [ Rx] Omeprazole 20 mg PO DAILY #30 tablet.dr 06/26/17 [Rx] glipiZIDE [Glucotrol] 2.5 mg PO AC-BID #60 tab 06/26/17 [Rx] Follow up Appointment(s)/Referral(s): Anais Oswald MD [Primary Care Provider] - 1 Week Patient Instructions/Handouts: Chest Pain (ED) Activity/Diet/Wound Care/Special Instructions: Diet: diabetic, cardiac Activity: as tolerated Follow up with her ENT out patient in 1 week Discharge Disposition: HOME SELF-CARE
== END 2017-06-26 14:58 | disposition home or self-care (01) ==
LOC: EC 16:03 → 3OBS 19:12
PROVIDERS: ADMIT Internal Medicine; ATTEND Internal Medicine
DX: R07.89 Other chest pain (principal); F17.210 Nicotine dependence, cigarettes, uncomplicated; E11.9 Type 2 diabetes mellitus without complications; R13.10 Dysphagia, unspecified; K29.80 Duodenitis without bleeding; K29.60 Other gastritis without bleeding; R42 Dizziness and giddiness; R06.02 Shortness of breath; R20.2 Paresthesia of skin; R20.0 Anesthesia of skin; M79.601 Pain in right arm; R50.9 Fever, unspecified; R49.0 Dysphonia; R00.0 Tachycardia, unspecified; E78.5 Hyperlipidemia, unspecified; E11.65 Type 2 diabetes mellitus with hyperglycemia; F41.9 Anxiety disorder, unspecified; F32.9 Major depressive disorder, single episode, unspecified; M19.90 Unspecified osteoarthritis, unspecified site; G47.33 Obstructive sleep apnea (adult) (pediatric); Z99.89 Dependence on other enabling machines and devices; Z79.82 Long term (current) use of aspirin; Z79.899 Other long term (current) drug therapy; Z79.84 Long term (current) use of oral hypoglycemic drugs; Z88.6 Allergy status to analgesic agent; I10 Essential (primary) hypertension; Z87.01 Personal history of pneumonia (recurrent); Z91.14 Patient's other noncompliance with medication regimen
CPT/HCPCS: 99291; 96374 ×2; 96361 ×2; 36415; 93005; 93306; 85379; 88305; 83880; 80061; 80053; 80048; 83036; 82550 ×2; 82553 ×2; 83690; 83735; 84484 ×2; 85025 ×2; 85610; 85730; 88342; 71020; 71275; 43239; G0378 ×3; S4990 ×2; J2060; Q9967; J2001; J2704